=== PATIENT | male | born 1955 | race African-American/Black ===

== ENCOUNTER 2020-01-03 07:11 | Emergency (ER) | payer OTHER ==
[~2020-01-03] VITALS: Ht 172.7 cm; Wt 61.2 kg
[2020-01-03] MEDS ORDERED: NOHOMEMEDICATIONS (07:26)
[2020-01-03 07:42] LABS: HEMOGLOBIN 12.9 gm/dL (14.0-18.0); MCH 29.7 pg (26.0-34.0); MCHC 33.2 g/dL (28.0-37.0); MCV 89.6 fL (80.0-100.0); RBC 4.35 mil/uL (4.50-6.00); RDW 15.6 % (10.5-14.5); WBC 7.4 thou/uL (4.0-11.0)
[2020-01-03 08:31] LABS: ABSOLUTE NEUTROPHILS 3.3 thou/uL (1.4-8.2)
[2020-01-03 08:33] LABS: PLATELET COUNT 145 thou/uL (150-400)
[2020-01-03 09:18] LABS: ANION GAP 8 mmol/L (7-16); BUN 6 mg/dL (7-18); CALCIUM 9.1 mg/dL (8.5-10.1); CHLORIDE 101 mmol/L (98-107); CO2 29 mmol/L (21-32); GLUCOSE 94 mg/dL (74-106); POTASSIUM 3.3 mmol/L (3.5-5.1); SODIUM 138 mmol/L (136-145)
[2020-01-03 09:26] LABS: TROPONIN-I <0.06 ng/mL (<0.06)
[2020-01-03] MEDS ORDERED: ZPAK PO (10:18)
[2020-01-03] MEDS ORDERED: MOBIC15 MG PO (10:18)
[2020-01-03 10:30] VITALS: BP 119/63
--- NOTE | 2020-01-05 07:40 | EKG ---
[facility] [place] [address] ELECTROCARDIOGRAM REPORT Name: SHAMIKA PÉREZ Room #: DEP [facility]#: [id number] Admission: 01/03/20 Attend Phys: Discharge: 01/03/20 Date of : 59 Report #: [id number] THIS REPORT FOR: cc: ANCELMO - Mikayla family physician/PCP ANCELMO - Mikayla family physician/PCP Wan Santoro MD [facility] THIS REPORT FOR: //name// [facility] ED Test Date: 2020-01-03 Test Time: 07:16:10 Pat Name: SHAMIKA PÉREZ Department: Room: Gender: Education Assistant: : 1955 Requested By: Mariposa Amaya Order Number: [id number] MD: Wan Santoro Measurements Intervals Roberta Rate: 61 P: 51 MN: 149 QRS: 22 QRSD: 86 T: 50 QT: 445 QTc: 449 Interpretive Statements Sinus rhythm Atrial premature complex No previous ECG available for comparison Electronically Signed On 01-05-2020 7:39:44 CDT by Wan Santoro [email or web address] <ELECTRONICALLY SIGNED> By: Wan Santoro MD, [facility] 01/05/20 0739 5 5 Wan Santoro MD, [facility] /EPI
== END 2020-01-03 10:30 | disposition home or self-care (01) ==
LOC: ER 07:11
PROVIDERS: Emergency Medicine
DX: J06.9 Acute upper respiratory infection, unspecified (principal); T59.891A Toxic effect of other specified gases, fumes and vapors, accidental (unintentional), initial encounter; Y92.89 Other specified places as the place of occurrence of the external cause